=== PATIENT | male | born 1990 | race Caucasian/White ===

== ENCOUNTER 2025-04-03 09:51 | Emergency (ER) | payer BC ==
[2025-04-03 10:09] LABS: BASOPHILS PERCENT AUTO 0.2 % (0.0-1.0); EOSINOPHILS PERCENT AUTO 0.1 % (1.0-3.0); LYMPHOCYTES PERCENT AUTO 13.6 % (20.5-50.1); MONOCYTES PERCENT AUTO 6.9 % (2-8); NEUTROPHILS PERCENT AUTO 79.2 % (42.2-75.2); PLATELET COUNT,PLT 253 10^3/uL (150-450); RED BLOOD CELL COUNT 4.78 10^6/uL (4.6-6.2); WHITE BLOOD CELL COUNT,WBC 10.8 10^3/uL (5.0-10.0)
[2025-04-03] MEDS: Diphtheria,Pertussis(Acell),Tetanus Vaccine 0.5 ML Syringe IM ONE (10:09)
[2025-04-03] MEDS: Ciprofloxacin in D5W 400 MG in Premix Bag 1 BAG IV ONE (10:10)
[2025-04-03 10:25] LABS: BLOOD UREA NITROGEN,BUN 7 mg/dL (7-18); CARBON DIOXIDE,CO2 27 mmol/L (21-32); CHLORIDE,CL 101 mmol/L (98-107); CREATININE 0.74 mg/dL (0.70-1.30); ESTIMATED GFR 120 mL/min (>=60); ETHANOL BLOOD MEDICAL < 3 mg/dL (0); GLUCOSE RANDOM 112 mg/dL (70-99); POTASSIUM,K 3.2 mmol/L (3.5-5.1); SODIUM,NA 139 mmol/L (136-145)
[2025-04-03] MEDS ORDERED: Lidocaine 1% with EPINEPHrine 1:100,000 20 ML MDV ONE (10:48)
[2025-04-03 11:51] LABS: APPEARANCE,URINE SLIGHTLY CLOUDY (CLEAR); GLUCOSE,URINE NEGATIVE (NEGATIVE); OCCULT BLOOD,URINE NEGATIVE (NEGATIVE)
[2025-04-03 11:54] LABS: AMPHETAMINES,URINE POSITIVE (NEGATIVE); BARBITURATES,URINE NEGATIVE (NEGATIVE); MDMA (ECSTASY), URINE NEGATIVE (NEGATIVE); METHAMPHETAMINES,URINE NEGATIVE (NEGATIVE); OPIATES,URINE NEGATIVE (NEGATIVE); OXYCODONE,URINE NEGATIVE (NEGATIVE); PHENCYCLIDINE,URINE NEGATIVE (NEGATIVE); TCA,URINE NEGATIVE (NEGATIVE)
[2025-04-03] MEDS ORDERED: Take Home: Ciprofloxacin HCl 500 MG, 6 Tab Pack ONE (11:57)
[2025-04-03 11:59] LABS: EPITHELIAL CELLS,URINE RARE /HPF (NOT SEEN)
[2025-04-03] MEDS: Take Home: Ciprofloxacin HCl 500 MG, 6 Tab Pack PO ONE (12:00)
== END 2025-04-03 12:06 ==
LOC: EDBD → DL.ED 09:51 → MERGE 09:51 → DL.ED 12:06
DX: S01.331A Puncture wound without foreign body of right ear, initial encounter (principal); H72.91 Unspecified perforation of tympanic membrane, right ear; Z23 Encounter for immunization; W34.00XA Accidental discharge from unspecified firearms or gun, initial encounter
CPT/HCPCS: 12002; 12013; 36415; 70450; 80048; 80305; 80307; 81001; 85025; 90471; 90715; 96365; 99285; A9270; J0744